=== PATIENT | female | born 1960 | race African-American/Black ===

== ENCOUNTER 2017-01-30 05:43 | Inpatient (IN) | payer OTHER ==
[~2017-01-30] VITALS: Ht 165.1 cm; Wt 91.2 kg
[2017-01-30] VITALS (16 sets, daily range): BP systolic 110–141; BP diastolic 61–83
[2017-01-30] MEDS ORDERED: Thrombin 5000 units TOPIC ONE (06:38)
[2017-01-30] MEDS ORDERED: Bupivacaine w/Epi 0.5% 30ml Vial INJ ONE (06:38)
[2017-01-30] MEDS ORDERED: Thrombin 5000 units spray kit TOPIC ONE (06:39)
[2017-01-30] MEDS ORDERED: Bacitracin 50000 Units Vial ONE (06:39)
[2017-01-30] MEDS ORDERED: Gelfoam Absorbable 1gm powder pkt TOPIC ONE (06:39)
[2017-01-30] MEDS ORDERED: Lidocaine 1% MPF 10mg/ml 5ml ONE (07:00)
[2017-01-30] MEDS ORDERED: Propofol 1,000mg/ 100ml btl IV ONE (07:00)
[2017-01-30] MEDS ORDERED: fentaNYL 100 mcg/2 mL IV ONE (07:00)
[2017-01-30] MEDS ORDERED: Zemuron 50mg/5ml Inj IV ONE (07:00)
[2017-01-30] MEDS ORDERED: LR 1000ml ONE (07:00)
[2017-01-30] MEDS ORDERED: Midazolam 2mg/2ml Inj ONE (07:00)
[2017-01-30] MEDS ORDERED: Naloxone 0.4mg/ml Inj ONE (07:00)
--- NOTE | 2017-01-30 07:00 | Pre-Procedure Note/Attestation ---
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 I attest that, if there was a reasonable possibility of needing a blood transfusion, the patient (or the patient's legal computer help desk representative) was given the [facility] standardized written summary, pursuant to the Oscar Abhishek Blood Safety Act ([place] Health and Safety Code # 1645, as amended). I attest that I re-evaluated the patient just prior to the surgery and that there has been no change in the patient's H&P, except as documented below: STACI MONAHAN Jan 30, 2017 07:00
[2017-01-30] MEDS ORDERED: Heparin 5000 units/ml inj ONE (07:50)
[2017-01-30] MEDS ORDERED: LR 1000ml 1,000 ML IVLG SCH (08:18)
--- NOTE | 2017-01-30 08:26 | Anethesia Preoperative Eval ---
Anesthesia Pre-op PMH/ROS General Date of Evaluation: Jan 30, 2017 Time of Evaluation: 07:00 Anesthesiologist: Filomena ASA Score: ASA 1 Mallampati Score Class I : Soft palate, uvula, fauces, pillars visible Class II: Soft palate, uvula, fauces visible Class III: Soft palate, base of uvula visible Class IV: Only hard plate visible Mallampati Classification: Class III Surgeon: Filomena Diagnosis: HNP Surgical Procedure: ALIF L4-5, L5-S1 Family History: no anesthesia problems Allergies: Coded Allergies: SULFAMETHOXAZOLE (Verified Allergy, Severe, 01/27/17) rashes TRIMETHOPRIM (Verified Allergy, Severe, 01/27/17) rashes Medications: see eMAR Past Medical History Cardiovascular: Denies: HTN, CAD, DE, valve dz, arrhythmia, other Pulmonary: Denies: asthma, COPD, ARIANE, other Gastrointestinal/Genitourinary: Denies: GERD, CRI, ESRD, other Neurologic/Psychiatric: Denies: dementia, CVA, depression/anxiety, TIA, other Endocrine: Denies: DM, hypothyroidism, steroids, other HEENT: Denies: cataract (L), cataract (R), glaucoma, OHOGAMIUT (L), OHOGAMIUT (R), other Hematology/Immune: Denies: anemia, DVT, bleeding disorder, other Musculoskeletal/Integumentary: Denies: OA, RA, DJD, DDD, edema, other PMH Narrative: Denies significant PMH PSxH Narrative: Vaginal Hysterectomy, excision of sweat glands Anesthesia Pre-op Phys. Exam Physician Exam Last Vital Signs Date Time Temp Pulse Resp B/P (MAP) Pulse Ox O2 Delivery O2 Flow Rate FiO2 01/30/17 06:28 97.7 73 18 141/81 98 Room Air Constitutional: NAD Neurologic: CN 2-12 intact Cardiovascular: RRR, no M/R/G Respiratory: CTA Gastrointestinal: S/NT/ND Airway Exam Mallampati Score: Class III MO: full ROM: full Teeth: intact Anesthesia Pre-op A/P Labs WNL Studies Pre-op Studies: EKG - NSR, echo - Nl wall motion abnormality, EF 65% Risk Assessment & Plan Assessment: Healthy female for ALIF Plan: GETA, SedLine Status Change Before Surgery: Yes Pre-Antibiotics Drug: Ancef Given Within 1 Hr of Incision: Yes Time Given: 08:00 RONY DELGADO M.D. Jan 30, 2017 08:26
--- NOTE | 2017-01-30 08:27 | Immediate Post-Op Evaluation ---
Immediate Post-Op Evalulation Immediate Post-Op Evalulation Procedure: ALIF L5-S1, L4-5 Date of Evaluation: Jan 30, 2017 Time of Evaluation: 09:37 IV Fluids: 1200 Estimated Blood Loss: 50 Urinary Output: 50 Blood Pressure Systolic: 122 Blood Pressure Diastolic: 67 Pulse Rate: 85 Respiratory Rate: 14 O2 Sat by Pulse Oximetry: 100 Temperature (Fahrenheit): 98.0 Pain Score (1-10): 3 Nausea: No Vomiting: No Complications No complication Patient Status: reacts, patent, extubated, none Hydration Status: adequate Drug: Ancef Given Within 1 Hr of Incision: Yes Time Given: 07:30 RONY DELGADO M.D. Jan 30, 2017 08:27
[2017-01-30] MEDS ORDERED: LR 1000ml 1,000 ML IV SCH (08:30)
[2017-01-30] MEDS ORDERED: Meperidine 25mg/0.5ml Inj (FOR RIGORS ONLY) IV PRN (08:30)
[2017-01-30] MEDS ORDERED: LORazepam Inj 2mg/ml 1ml IV PRN (08:30)
[2017-01-30] MEDS ORDERED: DiphenhydrAMINE 50mg/ml Inj IVP PRN ×2 (08:30→09:15)
--- NOTE | 2017-01-30 09:10 | Operative Note - PDOC ---
Operative Note Operative Note Chief Complaint: Low Back Pain and leg pain Pre-op Diagnosis: Instability and Stenosis L4-5 & L5/S1 Procedure: Anterior Decompression and fixation L4-5 & L5/S1 Post-op Diagnosis: same as pre-op Surgeon: Filomena Child Support Investigator: GANESH Valdes Additional Surgeons: Jose, Vascular Access Anesthesiologist: Kendall Anesthesia: general Specimen: none Complications: none Condition: stable Estimated Blood Loss: minimal Drains: none Implant(s) used?: Yes - Sola InFix devices with SolaSTACI Franks Jan 30, 2017 09:10
[2017-01-30] MEDS ORDERED: Acetaminophen 650 MG SUPP RECTAL PRN (09:15)
[2017-01-30] MEDS: Hydromorphone 0.5mg/0.5ml inj IVP PRN ×2 (09:42→10:14)
[2017-01-30] MEDS ORDERED: Rate Change PCA 1 Each MISC PRN (09:50)
[2017-01-30] MEDS ORDERED: LORazepam 1mg tab ORAL PRN (09:50)
[2017-01-30] MEDS ORDERED: Naloxone 0.4mg/ml Inj IVP PRN (09:50)
[2017-01-30] MEDS: PCA HYDROmorphone 1mg/ml 30 ML IV PRN (09:51)
[2017-01-30] MEDS ORDERED: PCA Education Pamphlet MISC ONE (11:00)
[2017-01-30] MEDS: ceFAZolin sod 1 GM in D5W 55 ML IV SCH ×2 (15:01→22:50)
[2017-01-30] MEDS: D5 1/2NS w/KCl 20mEq 1,000 ML IV SCH (15:01)
[2017-01-30] MEDS: PCA shift volume MISC SCH (19:12)
--- NOTE | 2017-01-30 22:30 | Operative Note - Dictated ---
DATE OF OPERATION: 01/30/2017 SURGEON: Facundo Butt M.D. MAMMOGRAPHY SUPERVISOR SURGEON: Vascular approach, Dr. Garcia. MAMMOGRAPHY SUPERVISOR: Barbara Cedeno ANESTHESIOLOGIST: Oscar Argueta M.D. Preoperative Diagnoses: Discogenic disease at L4-L5 and L5-S1 with significant loss of disk height, segmental instability, and canal and foraminal compromise. Postoperative Diagnoses: Discogenic disease at L4-L5 and L5-S1 with significant loss of disk height, segmental instability, and canal and foraminal compromise. Approach: Left pararectus retroperitoneal approach accomplished by Dr. Garcia with vessel mobilization and stabilization using a table-fixed frame with reverse-tip blades. The patient also had an anterior annulotomy, nuclear diskectomy, partial vertebrectomy, bilateral foraminotomy, and micro neurolysis at both levels and open reduction and internal fixation was accomplished with InFix cage and fusion was accomplished using autogenous bone and bone protein. Image intensification was used. Cell Saver was employed. Pulse oximetry was used throughout to monitor vasculature. Anesthesia: General endotracheal with arterial blood pressure monitoring. Description of Procedure: The patient was prepped and draped in the supine position. Bolster was placed in the lumbar area to create normal lordosis. The lower abdomen was prepped and draped freely after a Barajas was positioned. A left pararectus incision was made by Dr. Garcia. The rectus was mobilized. The retroperitoneal area was entered and the anterior aspect of the vertebral bodies and intervening disks at L4-5 and L5-S1 were localized. The vessels were mobilized and retracted. At L5-S1, the dissection was between and below the bifurcation. At L4-L5, the segmentals were clamped and the vena cava and aorta were retracted to the right. The L5-S1 level was approached primarily. A marker was placed anteriorly to marriage performer the center of the disk. The anterior annulotomy was done and then disk removal was accomplished by using straight and angled larger to smaller curettes, Kerrisons and pituitaries. A detachable lordotic Colin tree distractor was employed beginning at 8 mm and progressing to 12 from side to side to expose preferentially and progressively more of the endplates to the posterior disk and the posterior anulus. The posterior disk anulus was released and the dural sac was uncovered. Each foramen at L5-S1 was widely opened using a small Kerrison. X-rays were taken with a template showing that 10 spacer was adequate, 6+3 degrees of lordosis was added in the distal and proximal endplates sequentially. The endplates were then tapped into place. The side struts were inserted. The position was again checked and the side supports were then cold-welded. Bone protein as well as autogenous bone harvested during the procedure was then placed into the space between the endplates of the cage. At L5-S1, there was a significant disk bulge and also posterior osteophytic rim that was removed. The retractors were repositioned and the L4-L5 level was centered with a spinal needle. Using fluoro, an anterior annulotomy was done, the nuclear disk and cartilaginous endplate was then sequentially removed as at L5-S1 from front to back until the posterior anulus and posterior osteophytes were encountered. The whole posterior disk was removed including the osteophytic edges at the borders of the inferior portion of L4 and the superoposterior portion of L5. A bilateral foraminotomy and neurolysis was accomplished. The space was templated up to 10 mm with 3+3 degrees of added lordosis. The endplates were inserted, checked, side struts were placed, again the position was checked, and the side struts were cold-welded. Bone protein was then placed again between the endplates as well as autogenous bone and the position was checked on AP. The cages were well centered in the midline. On lateral, there was good reproduction of lordosis and overall height with good overall spine alignment and good anchoring position of the outer edge of each of the plates at L4-L5 and L5-S1. There was no significant bleeding. The wound was closed in layers including the rectus sheath, subcutaneous tissue, and skin. The anesthesiologist was Dr. Argueta. The patient placed in a bulky dressing and returned to recovery room in good condition. Facundo Butt M.D. DR: ROCKY JOB#: [id number] CC:
--- NOTE | 2017-01-31 00:15 | Operative Note - Dictated ---
VASCULAR SURGEON: Winston Garcia M.D. SPINE SURGEON: Facundo Butt M.D. PREOPERATIVE DIAGNOSIS: Degenerative disk disease. POSTOPERATIVE DIAGNOSIS: Degenerative disk disease. PROCEDURES PERFORMED: 1. Anterior retroperitoneal exposure of L4-L5 vertebral interspace. 2. Anterior retroperitoneal exposure of L5-S1 vertebral interspace. Indications: The patient is a very pleasant woman, who is seen in my office prior to surgery. She has been scheduled for anterior fusion L4-L5 and L5-S1. She has no history of prior anterior abdominal surgery. No history of deep venous thrombosis or bleeding complications described. She has been made aware of the need for vascular mobilization, possibility of vascular injury, possible need for blood transfusion, and deep venous thrombosis were explicitly discussed prior to surgery. Description Of Findings: A low vertical midline incision was used. A left retroperitoneal approach was used. There is no peritoneal or ureteral violation. There is no vascular injury. Exposure of L5-S1 was obtained by retraction of the left iliac artery and vein superiorly and laterally and confirmed using fluoroscopy prior to instrumentation. Exposure of L4-L5 was obtained by retraction of the left iliac vessels and distal aorta towards the patient's right and once again confirmed using fluoroscopy. On completion, the peritoneum and ureter were intact and the iliac vessels were intact. BLOOD LOSS: Less than 50 mL. COMPLICATIONS: None. Description OF Procedure: The patient was taken to the operative room, general anesthesia was used. Barajas catheter was placed. The patient's abdomen was prepped and draped. Appropriate timeout for procedures taken. A vertical midline incision was made infraumbilically. The anterior fascia was incised longitudinally midline. A plane was identified posterior to the left rectus abdominis developed posterolaterally towards the patient's left. The retroperitoneal space was entered below the arcuate line. The peritoneum and ureter were mobilized towards the patient's right exposing the left common iliac artery and vein. Initially, dissection was carried on the undersurface of left common iliac vein. The middle sacral artery and vein were ligated with vascular clips and divided and this allowed us to retract the left iliac vessels superiorly and laterally and the peritoneum and ureter towards the patient's right exposing the anterior surface of L5 and S1. The Omni retractor was set in place along with the use of Diaz blades laterally and then fluoroscopy was used to confirm the appropriate level. Instrumentation was performed at L5-S1 and dictated separately. Retractor was then repositioned below the iliac bifurcation. Dissection was carried to left side of left iliac artery and vein. Overlying lymphatics were ligated with vascular clips. The iliolumbar vein identified and encircled using a 2-0 silk tie and then triply ligated proximally and distally with vascular clips. The L4 segmental artery and vein were also identified and ligated with vascular clips and divided. This allowed us to retract the left iliac vessels towards the patient's right exposing the anterior surface of L4-L5. Once again, the Omni retractor was set in place using the Diaz blades laterally and then fluoroscopy was used to confirm the appropriate level and then instrumentation was performed as dictated separately. On completion, the peritoneum and ureter were intact and iliac vessels were intact. There was palpable femoral and pedal pulses. Pulse oximetry is normal on the left foot on completion and blood loss was minimal. The anterior fascia was then closed using #1 PDS in a running fashion. Skin and subcutaneous tissue was closed using 3-0 Vicryl and 4-0 Monocryl in a running subcuticular closure technique. Winston Garcia M.D. DR: EMMA JOB#: [id number] CC:
[2017-01-31 00:18] VITALS: BP 127/73
[2017-01-31] MEDS: D5 1/2NS w/KCl 20mEq 1,000 ML IV SCH ×3 (02:11→23:02)
[2017-01-31 04:00] VITALS: BP 123/73
[2017-01-31] MEDS: ceFAZolin sod 1 GM in D5W 55 ML IV SCH (06:02)
[2017-01-31] MEDS: PCA shift volume MISC SCH ×2 (07:12→19:00)
[2017-01-31 08:00] VITALS: BP 114/68
--- NOTE | 2017-01-31 08:51 | History & Physical ---
History and Physical History & Physicial 01/30 HP reviewed care noted d/w RN meds noted NICA CAZARES Jan 31, 2017 08:51
--- NOTE | 2017-01-31 08:52 | General Progress Note ---
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 incentive spirometry 2. SCD 3. PT evaluation and therapy 4. Hydration and advance diet as tolerated 5. Pain management 6. discharge once stable with outpatient follow up Subjective Allergies: Coded Allergies: SULFAMETHOXAZOLE (Verified Allergy, Severe, 01/27/17) rashes TRIMETHOPRIM (Verified Allergy, Severe, 01/27/17) rashes Subjective has pain working with PT Objective Last 24 Hour Vital Signs Date Time Temp Pulse Resp B/P (MAP) Pulse Ox O2 Delivery O2 Flow Rate FiO2 01/31/17 08:00 98.8 87 18 114/68 99 Nasal Cannula 01/31/17 04:04 16 01/31/17 04:00 98.2 84 16 123/73 96 Nasal Cannula 3.0 01/31/17 00:18 98.0 90 18 127/73 100 Nasal Cannula 3.0 01/31/17 00:09 16 01/30/17 20:07 98.8 86 18 110/61 96 Nasal Cannula 3.0 01/30/17 20:01 18 01/30/17 16:00 18 01/30/17 15:58 97.9 80 18 131/79 97 Nasal Cannula 3.0 01/30/17 12:20 97.9 80 18 129/76 100 Nasal Cannula 3.0 01/30/17 12:00 16 01/30/17 11:10 97.5 78 18 128/78 100 Nasal Cannula 3.0 01/30/17 10:55 97.4 80 18 128/83 100 Nasal Cannula 3.0 01/30/17 10:52 16 01/30/17 10:45 97.8 81 15 124/74 99 Nasal Cannula 3.0 01/30/17 10:30 82 13 123/72 99 Nasal Cannula 3.0 01/30/17 10:30 98.0 01/30/17 10:30 16 01/30/17 10:20 83 14 121/72 100 Nasal Cannula 3.0 01/30/17 10:15 15 01/30/17 10:14 98.0 01/30/17 10:10 83 18 123/73 100 Nasal Cannula 3.0 01/30/17 10:00 14 01/30/17 10:00 86 15 124/73 100 Nasal Cannula 3.0 01/30/17 09:51 15 01/30/17 09:50 89 15 126/76 100 Nasal Cannula 3.0 01/30/17 09:45 83 17 125/72 100 Nasal Cannula 3.0 01/30/17 09:40 90 17 130/70 99 Simple Mask 6.0 01/30/17 09:35 89 13 121/68 100 Simple Mask 6.0 01/30/17 09:30 85 14 100 01/30/17 09:27 98.0 88 14 122/67 100 Simple Mask 6.0 Height (Feet): 5 Height (Inches): 5.00 Weight (Pounds): 201 Objective WDWN NAD clear breath sounds bilaterally without rhonchi or wheeze [id number] without MRG NABS tender no HSM no CCE nonfocal NICA CAZARES Jan 31, 2017 08:52
--- NOTE | 2017-01-31 09:39 | General Surgery Progress Note ---
General Surgery-Progress Note Subjective Procedure Performed Anterior Decompression and fixation L4-5 & L5/S1 Chief Complaint: "Can not get comfortaable. low back pain" Objective Last 24 Hour Vital Signs Date Time Temp Pulse Resp B/P (MAP) Pulse Ox O2 Delivery O2 Flow Rate FiO2 01/31/17 08:00 17 01/31/17 08:00 98.8 87 18 114/68 99 Nasal Cannula 01/31/17 04:04 16 01/31/17 04:00 98.2 84 16 123/73 96 Nasal Cannula 3.0 01/31/17 00:18 98.0 90 18 127/73 100 Nasal Cannula 3.0 01/31/17 00:09 16 01/30/17 20:07 98.8 86 18 110/61 96 Nasal Cannula 3.0 01/30/17 20:01 18 01/30/17 16:00 18 01/30/17 15:58 97.9 80 18 131/79 97 Nasal Cannula 3.0 01/30/17 12:20 97.9 80 18 129/76 100 Nasal Cannula 3.0 01/30/17 12:00 16 01/30/17 11:10 97.5 78 18 128/78 100 Nasal Cannula 3.0 01/30/17 10:55 97.4 80 18 128/83 100 Nasal Cannula 3.0 01/30/17 10:52 16 01/30/17 10:45 97.8 81 15 124/74 99 Nasal Cannula 3.0 01/30/17 10:30 82 13 123/72 99 Nasal Cannula 3.0 01/30/17 10:30 98.0 01/30/17 10:30 16 01/30/17 10:20 83 14 121/72 100 Nasal Cannula 3.0 01/30/17 10:15 15 01/30/17 10:14 98.0 01/30/17 10:10 83 18 123/73 100 Nasal Cannula 3.0 01/30/17 10:00 14 01/30/17 10:00 86 15 124/73 100 Nasal Cannula 3.0 01/30/17 09:51 15 01/30/17 09:50 89 15 126/76 100 Nasal Cannula 3.0 01/30/17 09:45 83 17 125/72 100 Nasal Cannula 3.0 01/30/17 09:40 90 17 130/70 99 Simple Mask 6.0 Dressing: dry Wound: clean Drains: none Abdomen: soft, absent bowel sounds Additional Comments Patient ambulating with PT. 5/5 strength both lower extremities. NPO no lower GI activity. D/C luis alberto zapata. Dr. Fran reed. STACI MONAHAN Jan 31, 2017 09:39
[2017-01-31] MEDS: PCA HYDROmorphone 1mg/ml 30 ML IV PRN (09:55)
--- NOTE | 2017-01-31 09:57 | Diagnostic Imaging Report ---
Indication: PAIN, intraoperative Technique: Digital intraoperative images Comparison: None Findings: Initial localizer image demonstrates a needle projected at the expected level of the L5-S1 disc. Subsequent images document placement of disc prostheses at L4-5 and L5-S1. Impression: Intraoperative imaging, as described
--- NOTE | 2017-01-31 11:02 | 48 Hour Post Anesthesia Eval ---
Post Anesthesia Evaluation Procedure: ALIF L5-S1, L4-5 Date of Evaluation: Jan 31, 2017 Time of Evaluation: 13:00 Blood Pressure Systolic: 114 0: 68 Pulse Rate: 87 Respiratory Rate: 18 Temperature (Fahrenheit): 98.8 O2 Sat by Pulse Oximetry: 99 Airway: patent Nausea: No Vomiting: No Pain Intensity: 4 - Using FORENSIC SPECIALIST Hydration Status: adequate Cardiopulmonary Status: Stable Mental Status/LOC: patient returned to baseline Follow-up Care/Observations: As per surgery Post-Anesthesia Complications: No anesthetic complication Follow-up care needed: N/A RONY DELGADO M.D. Jan 31, 2017 11:02
[2017-01-31 12:00] VITALS: BP 117/63
[2017-01-31 16:00] VITALS: BP 124/75
[2017-01-31 20:00] VITALS: BP 114/65
[2017-02-01] VITALS: BP 109/60
[2017-02-01 04:00] VITALS: BP 110/63
[2017-02-01] MEDS: D5 1/2NS w/KCl 20mEq 1,000 ML IV SCH ×3 (06:00→21:06)
[2017-02-01] MEDS: PCA shift volume MISC SCH ×2 (07:00→19:28)
[2017-02-01 08:00] VITALS: BP 116/64
[2017-02-01] MEDS ORDERED: LORazepam 1mg tab ORAL PRN (08:30)
[2017-02-01] MEDS ORDERED: PCA Education Pamphlet MISC ONE (08:30)
[2017-02-01] MEDS ORDERED: Rate Change PCA 1 Each MISC PRN ×2 (08:30)
[2017-02-01] MEDS ORDERED: Naloxone 0.4mg/ml Inj IVP PRN (08:30)
--- NOTE | 2017-02-01 10:44 | Diagnostic Imaging Report ---
Indication: Chest pain Technique: One view of the chest Comparison: none Findings: Lungs and pleural spaces are clear. Heart size is normal. Impression: No acute process This agrees with the preliminary interpretation provided overnight by [facility] teleradiology service.
[2017-02-01 12:00] VITALS: BP 105/66
[2017-02-01 16:00] VITALS: BP 121/70
--- NOTE | 2017-02-01 16:31 | Cardiology Report ---
APPROVED REPORT EKG Measurement Heart [id number] Normal sinus rhythm Normal ECG
--- NOTE | 2017-02-01 17:28 | General Progress Note ---
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 incentive spirometry 2. SCD 3. PT evaluation and therapy 4. Hydration and advance diet as tolerated 5. Pain management 6. discharge once stable with outpatient follow up Subjective Allergies: Coded Allergies: SULFAMETHOXAZOLE (Verified Allergy, Severe, 01/27/17) rashes TRIMETHOPRIM (Verified Allergy, Severe, 01/27/17) rashes Subjective has pain working with PT still no bowel sounds Objective Last 24 Hour Vital Signs Date Time Temp Pulse Resp B/P (MAP) Pulse Ox O2 Delivery O2 Flow Rate FiO2 02/01/17 16:00 18 02/01/17 12:00 18 02/01/17 12:00 98.2 85 16 105/66 96 Room Air 02/01/17 08:00 98.1 84 16 116/64 97 Room Air 02/01/17 08:00 18 02/01/17 04:00 16 02/01/17 04:00 98.6 86 18 110/63 100 Nasal Cannula 3.0 02/01/17 00:00 16 02/01/17 00:00 99.0 92 18 109/60 98 Room Air 01/31/17 20:00 99.2 89 18 114/65 99 Nasal Cannula 3.0 01/31/17 20:00 18 Intake and Output 02/01/17 02/02/17 19:00 07:00 Output Total 350 ml Balance -350 ml Output Urine Total 350 ml # Voids 1 Height (Feet): 5 Height (Inches): 5.00 Weight (Pounds): 201 Objective WDWN NAD clear breath sounds bilaterally without rhonchi or wheeze [id number] without MRG NABS tender no HSM no CCE nonfocal NICA CAZARES Feb 01, 2017 17:28
[2017-02-01] MEDS: DiphenhydrAMINE 50mg/ml Inj IVP PRN (17:54)
[2017-02-01] MEDS: PCA HYDROmorphone 1mg/ml 30 ML IV PRN (17:57)
[2017-02-01] MEDS ORDERED: PCA shift volume MISC SCH (19:00)
[2017-02-01 20:00] VITALS: BP_SYST 132; BP_DIAS 0; BP_DIAS 70
[2017-02-02] VITALS: BP 119/56
[2017-02-02 04:00] VITALS: BP 108/61
[2017-02-02] MEDS: PCA shift volume MISC SCH ×2 (07:00→19:23)
[2017-02-02 08:00] VITALS: BP 128/72
--- NOTE | 2017-02-02 09:02 | General Surgery Progress Note ---
General Surgery-Progress Note Subjective Procedure Performed Anterior Decompression and fixation L4-5 & L5/S1 Symptoms: improved Objective Last 24 Hour Vital Signs Date Time Temp Pulse Resp B/P (MAP) Pulse Ox O2 Delivery O2 Flow Rate FiO2 02/02/17 04:00 98.9 93 18 108/61 98 Room Air 02/02/17 00:00 99.4 84 18 119/56 98 Nasal Cannula 2.0 02/02/17 00:00 17 02/01/17 22:00 Nasal Cannula 2.0 28 02/01/17 22:00 98 Nasal Cannula 2.0 28 02/01/17 20:00 18 02/01/17 20:00 99.4 90 18 132/70 99 Nasal Cannula 2.0 02/01/17 16:00 18 02/01/17 16:00 98.4 79 16 121/70 98 Room Air 02/01/17 12:00 18 02/01/17 12:00 98.2 85 16 105/66 96 Room Air Dressing: dry Wound: clean Drains: none Additional Comments Still no lower GI track activity >> NPO. D/C PRISON CLASSIFICATION COUNSELOR. Continue PT/OT STACI Zheng Feb 02, 2017 09:02
[2017-02-02 12:00] VITALS: BP 114/72
[2017-02-02] MEDS: D5 1/2NS w/KCl 20mEq 1,000 ML IV SCH ×3 (12:36→23:00)
--- NOTE | 2017-02-02 15:09 | General Progress Note ---
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 incentive spirometry 2. SCD; duplex ordered 3. PT evaluation and therapy 4. Hydration and advance diet as tolerated per surgery 5. Pain management 6. discharge once stable with outpatient follow up Subjective Allergies: Coded Allergies: SULFAMETHOXAZOLE (Verified Allergy, Severe, 01/27/17) rashes TRIMETHOPRIM (Verified Allergy, Severe, 01/27/17) rashes Subjective has pain working with PT numbness in legs Objective Last 24 Hour Vital Signs Date Time Temp Pulse Resp B/P (MAP) Pulse Ox O2 Delivery O2 Flow Rate FiO2 02/02/17 12:00 98.4 80 20 114/72 95 Room Air 02/02/17 12:00 18 02/02/17 08:00 99.1 85 18 128/72 97 Room Air 02/02/17 04:00 98.9 93 18 108/61 98 Room Air 02/02/17 00:00 99.4 84 18 119/56 98 Nasal Cannula 2.0 02/02/17 00:00 17 02/01/17 22:00 Nasal Cannula 2.0 28 02/01/17 22:00 98 Nasal Cannula 2.0 28 02/01/17 20:00 18 02/01/17 20:00 99.4 90 18 132/70 99 Nasal Cannula 2.0 02/01/17 16:00 18 02/01/17 16:00 98.4 79 16 121/70 98 Room Air Height (Feet): 5 Height (Inches): 5.00 Weight (Pounds): 201 Objective WDWN NAD clear breath sounds bilaterally without rhonchi or wheeze [id number] without MRG NABS tender no HSM no CCE nonfocal NICA CAZARES Feb 02, 2017 15:09
[2017-02-02 16:00] VITALS: BP 114/72
[2017-02-02] MEDS: DiphenhydrAMINE 50mg/ml Inj IVP PRN (16:00)
[2017-02-02] MEDS: PCA HYDROmorphone 1mg/ml 30 ML IV PRN (18:21)
[2017-02-02 20:00] VITALS: BP 121/75
[2017-02-03] VITALS: BP 116/66
[2017-02-03 04:00] VITALS: BP 115/65
[2017-02-03] MEDS: DiphenhydrAMINE 50mg/ml Inj IVP PRN (05:07)
[2017-02-03] MEDS: PCA shift volume MISC SCH (07:24)
[2017-02-03 08:00] VITALS: BP 115/70
--- NOTE | 2017-02-03 08:02 | General Progress Note ---
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 incentive spirometry 2. SCD; duplex negative 3. PT evaluation and therapy 4. Hydration and advance diet as tolerated per surgery 5. Pain management 6. discharge planning soon Subjective Allergies: Coded Allergies: SULFAMETHOXAZOLE (Verified Allergy, Severe, 01/27/17) rashes TRIMETHOPRIM (Verified Allergy, Severe, 01/27/17) rashes Subjective has pain working with PT numbness in legs duplex negative Objective Last 24 Hour Vital Signs Date Time Temp Pulse Resp B/P (MAP) Pulse Ox O2 Delivery O2 Flow Rate FiO2 02/03/17 04:48 18 02/03/17 04:00 99.2 94 19 115/65 95 Room Air 02/03/17 00:33 19 02/03/17 00:00 99.2 96 19 116/66 95 Room Air 02/02/17 22:21 18 02/02/17 20:12 98 Room Air 02/02/17 20:12 Room Air 02/02/17 20:00 99.7 85 19 121/75 96 Room Air 02/02/17 16:00 18 02/02/17 16:00 98.4 87 20 114/72 95 Room Air 02/02/17 12:00 98.4 80 20 114/72 95 Room Air 02/02/17 12:00 18 Intake and Output 02/03/17 02/04/17 19:00 07:00 Intake Total 100 ml Balance 100 ml Intake IV Total 100 ml Height (Feet): 5 Height (Inches): 5.00 Weight (Pounds): 201 Objective WDWN NAD clear breath sounds bilaterally without rhonchi or wheeze [id number] without MRG NABS tender no HSM no CCE nonfocal NICA CAZARES Feb 03, 2017 08:02
[2017-02-03] MEDS ORDERED: HYDROmorphone 1mg/ml Carpuject SUBQ PRN (08:30)
[2017-02-03] MEDS ORDERED: Norco 7.5mg/325mg tab ORAL PRN (08:30)
[2017-02-03] MEDS ORDERED: Norco 5mg/325mg tab ORAL PRN (08:30)
[2017-02-03] MEDS: HYDROmorphone 1mg/ml Carpuject IVP PRN ×3 (10:46→16:31)
[2017-02-03 12:00] VITALS: BP 126/80
--- NOTE | 2017-02-03 12:59 | Diagnostic Imaging Report ---
APPROVED REPORT CPT Code: 14233 Present Symptoms Lower Extremity Pain: Bilateral BILATERAL: Imaging reveals a patent deep venous system bilaterally. There is no evidence of thrombus within the femoral, popliteal or tibial segments. The greater saphenous veins are also within normal limits. Doppler indicates normal spontaneous flow within these segments.
[2017-02-03 16:49] VITALS: BP 126/66
[2017-02-03 20:00] VITALS: BP 112/64
[2017-02-04] VITALS: BP 115/73
[2017-02-04] MEDS: HYDROmorphone 1mg/ml Carpuject IVP PRN (02:20)
[2017-02-04 04:00] VITALS: BP 124/70
--- NOTE | 2017-02-04 05:52 | General Progress Note ---
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 incentive spirometry 2. SCD; duplex negative 3. PT evaluation and therapy 4. advance diet as tolerated per surgery 5. Pain management 6. discharge planning possibly today if stable Subjective Allergies: Coded Allergies: SULFAMETHOXAZOLE (Verified Allergy, Severe, 01/27/17) rashes TRIMETHOPRIM (Verified Allergy, Severe, 01/27/17) rashes Subjective on clears working with PT numbness in legs duplex negative Objective Last 24 Hour Vital Signs Date Time Temp Pulse Resp B/P (MAP) Pulse Ox O2 Delivery O2 Flow Rate FiO2 02/04/17 02:50 99.0 02/04/17 00:38 99.0 02/04/17 00:00 98.2 79 18 115/73 97 Room Air 02/03/17 20:14 Room Air 02/03/17 20:14 98 Room Air 02/03/17 20:00 99.0 85 18 112/64 97 Room Air 02/03/17 16:49 99.0 89 20 126/66 98 Room Air 02/03/17 12:00 98.1 81 20 126/80 100 Room Air 02/03/17 08:00 98.6 78 20 115/70 100 Room Air 02/03/17 08:00 16 02/03/17 07:50 98 02/03/17 07:50 Room Air Height (Feet): 5 Height (Inches): 5.00 Weight (Pounds): 201 Objective WDWN NAD clear breath sounds bilaterally without rhonchi or wheeze [id number] without MRG NABS tender no HSM no CCE nonfocal NICA CAZARES Feb 04, 2017 05:52
[2017-02-04 08:00] VITALS: BP 123/66
[2017-02-04 12:00] VITALS: BP 141/94
[2017-02-04 16:00] VITALS: BP 114/59
[2017-02-04 20:00] VITALS: BP 127/76
[2017-02-04] MEDS: Norco 7.5mg/325mg tab ORAL PRN (20:15)
[2017-02-05] VITALS: BP 122/80
[2017-02-05] MEDS: Norco 7.5mg/325mg tab ORAL PRN ×3 (02:31→12:51)
[2017-02-05 04:00] VITALS: BP 110/56
[2017-02-05 08:00] VITALS: BP 105/72
--- NOTE | 2017-02-05 08:37 | General Progress Note ---
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 incentive spirometry 2. tolerating PO 3. PT evaluation and therapy noted 4. dc home 5. Pain management adequate 6. laxatives Subjective Allergies: Coded Allergies: SULFAMETHOXAZOLE (Verified Allergy, Severe, 01/27/17) rashes TRIMETHOPRIM (Verified Allergy, Severe, 01/27/17) rashes Subjective tolerating PO doing well no distress Objective Last 24 Hour Vital Signs Date Time Temp Pulse Resp B/P (MAP) Pulse Ox O2 Delivery O2 Flow Rate FiO2 02/05/17 04:00 97.6 78 18 110/56 100 Room Air 02/05/17 00:00 97.6 79 18 122/80 98 Room Air 02/04/17 20:00 98.2 83 18 127/76 97 Room Air 02/04/17 16:00 97.4 81 17 114/59 96 Room Air 02/04/17 12:00 98.8 88 20 141/94 95 Room Air Height (Feet): 5 Height (Inches): 5.00 Weight (Pounds): 201 Objective WDWN NAD clear breath sounds bilaterally without rhonchi or wheeze [id number] without MRG NABS tender no HSM no CCE nonfocal NICA CAZARES Feb 05, 2017 08:37
[2017-02-05 12:00] VITALS: BP 119/72
[2017-02-05] MEDS ORDERED: Milk of Magnesia 30ml Ud ORAL ONE (12:00)
[2017-02-05] MEDS ORDERED: Bisacodyl EC 5mg tab ORAL ONE (12:00)
[2017-02-05 16:00] VITALS: BP 118/64
[2017-02-05] MEDS: HYDROmorphone 1mg/ml Carpuject IVP PRN ×2 (16:52→21:04)
[2017-02-05 20:00] VITALS: BP 104/60
[2017-02-06] VITALS: BP 105/56
[2017-02-06] MEDS: HYDROmorphone 1mg/ml Carpuject IVP PRN ×4 (00:16→16:49)
[2017-02-06 06:30] VITALS: BP 116/61
[2017-02-06 08:00] VITALS: BP 119/79
--- NOTE | 2017-02-06 08:33 | General Progress Note ---
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 incentive spirometry 2. tolerating PO 3. PT evaluation and therapy noted 4. dc home today 5. Pain management adequate 6. laxatives given Subjective Allergies: Coded Allergies: SULFAMETHOXAZOLE (Verified Allergy, Severe, 01/27/17) rashes TRIMETHOPRIM (Verified Allergy, Severe, 01/27/17) rashes Subjective tolerating PO no BM did not dc Objective Last 24 Hour Vital Signs Date Time Temp Pulse Resp B/P (MAP) Pulse Ox O2 Delivery O2 Flow Rate FiO2 02/06/17 06:30 98.2 80 18 116/61 98 Room Air 02/06/17 00:00 98.1 70 18 105/56 98 Room Air 02/05/17 20:00 97.9 73 18 104/60 98 Room Air 02/05/17 17:22 97.9 02/05/17 16:00 97.9 70 18 118/64 96 Room Air 02/05/17 13:50 98.2 02/05/17 12:00 98.2 70 18 119/72 99 Room Air Height (Feet): 5 Height (Inches): 5.00 Weight (Pounds): 201 Objective WDWN NAD clear breath sounds bilaterally without rhonchi or wheeze [id number] without MRG NABS tender no HSM no CCE nonfocal NICA CAZARES Feb 06, 2017 08:33
[2017-02-06 12:00] VITALS: BP 119/70
[2017-02-06 16:00] VITALS: BP 113/73
--- NOTE | 2017-02-08 15:14 | Discharge Summary ---
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 Anterior retroperitoneal exposure of L4-L5 vertebral interspace. 2. Anterior retroperitoneal exposure of L5-S1 vertebral interspace. s/p 01/[address] Butt Anterior annulotomy Nuclear diskectomy Partial vertebrectomy Bilateral foraminotomy Micro neurolysis at both levels Open reduction and internal fixation with InFix cage and fusion using autogenous bone and bone protein. 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 s/p Anterior Decompression and fixation L4-5 & L5/S1 Discharge Medications Medication Profile: No Active Prescriptions or Reported Meds Discharge Condition Upon Discharge: stable Discharge Disposition Patient was discharged to Home () Discharge Diagnoses: Discharge Instructions Discharge Instructions Special Instructions I have been assigned to complete a D/C Summary on this account. I was not involved in the patient management Juliette Pate NP ([place]) Feb 08, 2017 15:13
== END 2017-02-06 17:47 | disposition home or self-care (01) | DRG 460 ==
LOC: SDSOVERFLO 05:43 → 3E 10:51
PROC: 0SB40ZZ Excision of Lumbosacral Disc, Open Approach (ICD-10-PCS; principal; 2017-01-30 07:00)
PROC: 0SB20ZZ Excision of Lumbar Vertebral Disc, Open Approach (ICD-10-PCS; principal; 2017-01-30 07:00)
PROC: 0SG00A0 Fusion of Lumbar Vertebral Joint with Interbody Fusion Device, Anterior Approach, Anterior Column, Open Approach (ICD-10-PCS; principal; 2017-01-30 07:00)
PROC: 01NB0ZZ Release Lumbar Nerve, Open Approach (ICD-10-PCS; principal; 2017-01-30 07:00)
DX: M53.2X6 Spinal instabilities, lumbar region (principal); M48.06 Spinal stenosis, lumbar region; M53.2X7 Spinal instabilities, lumbosacral region; M48.07 Spinal stenosis, lumbosacral region; V89.2XXS Person injured in unspecified motor-vehicle accident, traffic, sequela; Z88.8 Allergy status to other drugs, medicaments and biological substances; Z88.2 Allergy status to sulfonamides
CPT/HCPCS: 36415; 71010; 72020; 76001; 86850; 86900; 86901; 87081; 93005; 93970; 94003; 94150; 94760; J2250; J2405